=== PATIENT | male | born 1955 | race Two or more races ===

== ENCOUNTER 2020-03-25 18:04 | Emergency (ER) | payer SELFPAY ==
[~2020-03-25] VITALS: Ht 172.7 cm; Wt 79.4 kg
[2020-03-25 18:20] VITALS: BP 125/77
[2020-03-25] MEDS ORDERED: Tetanus/Diptheria/Pertussis IM ONE (18:30)
[2020-03-25] MEDS ORDERED: LORazepam Inj 2mg/ml 1ml IM ONE (18:30)
--- NOTE | 2020-03-25 18:53 | NUR ---
ED Nurse Note: reported to [facility] pt's left elbow is bleeding with discoloration. ERMD assessed pt's arm at the bedside. pt has blood all down his left pant leg and left arm. pt stated that he fell. pt wet, changed him into a gown and gave him warm blankets. cleansed pt's left elbow with normal saline and placed guaze and 4x4. pt appears to be intoxicated, he was found on the side of the road with numerous phone calls in regards to him to 911.
--- NOTE | 2020-03-25 18:54 | Diagnostic Imaging Report ---
EXAM: XR Left Elbow Complete, 3 or More Views CLINICAL HISTORY: PAIN TECHNIQUE: Frontal, lateral and oblique views of the left elbow. COMPARISON: No relevant prior studies available. FINDINGS: Bones/joints: Triceps insertional small enthesophyte. No acute fracture. No dislocation. Soft tissues: Unremarkable. Other findings: Otherwise unremarkable. IMPRESSION: 1. No acute abnormality definitively identified to account for patient presentation. 2. Triceps insertional small enthesophyte. 3. Otherwise unremarkable study.
--- NOTE | 2020-03-25 19:10 | NUR ---
ED Nurse Note: Patient is currently resting no complaints, Aox3 vitals are stable awaiting further medical evaluation and treatment
--- NOTE | 2020-03-25 19:36 | Emergency Room Report ---
History of Present Illness General Chief Complaint: Alcohol Intoxication Source: Patient, EMS Present Illness HPI 64-year-old male presents for evaluation. Brought in by EMS from Street. For EtOH. Multiple bystanders called 911. Sitting on sidewalk. No signs of distress. Patient smiling. Denies pain. No other aggravating relieving factors. Denies any other associated symptoms Allergies: Coded Allergies: No Known Allergies (Unverified , 03/25/20) COVID-19 Screening Contact w/high risk pt: No Experienced COVID-19 symptoms?: No COVID-19 Testing performed [employer]: No Patient History Past Surgical History: none Pertinent Family History: none Social History: Reports: alcohol use; Denies: smoking, drug use Immunizations: UTD Reviewed Nursing Documentation: PMH: Agreed; PSxH: Agreed Review of Systems All Other Systems: negative except mentioned in HPI Physical Exam Vital Signs Date Time Temp Pulse Resp B/P (MAP) Pulse Ox O2 Delivery O2 Flow Rate FiO2 03/25/20 18:01 97.3 100 16 125/77 (93) 99 Room Air Sp02 EP Interpretation: reviewed, normal General Appearance: no apparent distress, alert, GCS 15, non-toxic Head: normocephalic, atraumatic Eyes: bilateral eye normal inspection, bilateral eye PERRL ENT: hearing grossly normal, normal pharynx, no angioedema, normal voice Neck: full range of motion, supple/symm/no masses Respiratory: chest non-tender, lungs clear, normal breath sounds, speaking full sentences Cardiovascular #1: regular rate, rhythm, no edema Cardiovascular #2: 2+ carotid (R), 2+ carotid (L), 2+ radial (R), 2+ radial (L), 2+ dorsalis pedis (R), 2+ dorsalis pedis (L) Gastrointestinal: normal bowel sounds, non tender, soft, non-distended, no guarding, no rebound Rectal: deferred Genitourinary: normal inspection, no CVA tenderness Musculoskeletal: back normal, normal range of motion, gait/station normal, tender - L elbow. abrasion noted. Neurologic: alert, motor strength/tone normal, oriented x3, sensory intact, responsive, speech normal Psychiatric: judgement/insight normal, memory normal, mood/affect normal, no suicidal/homicidal ideation Reflexes: 3+ bicep (R), 3+ bicep (L), 3+ tricep (R), 3+ tricep (L), 3+ knee (R), 3+ knee (L) Lymphatic: no adenopathy Medical Decision Making Homeless Attestation I, The treating physician Dr. Badillo, have assessed and agrees that patient is medically stable for discharge to an outpatient disposition. Diagnostic Impression: Primary Impression: Acute alcoholic intoxication Qualified Codes: F10.929 - Alcohol use, unspecified with intoxication, unspecified Additional Impression: Elbow contusion Qualified Codes: S50.02XA - Contusion of left elbow, initial encounter ER Course Hospital Course 64-year-old male presents to ED status post EtOH intoxication. presenting with L elbow pain Clinical course Patient placed on stretcher. Initial history and physical I ordered x-ray of left elbow. Tetanus given. X-ray shows no acute fracture. Bacitracin and dressing applied. Patient appears somewhat tremulous. Oriented. Vital stable. Likely withdrawing. Given Ativan. Allowed to rest. Observed. Protecting airway. Vital stable. Safe for discharge with close outpatient follow-up. Homeless checklist completed Diagnosis - ETOH intoxication, elbow contusion stable and discharged to home. Followup with PMD. Return to ED if symptoms recur or worsen Other X-Ray Diagnostic Results Other X-Ray Diagnostic Results : X-Ray ordered: L elbow # of Views/Limited Vs Complete: 3 View Indication: Pain EP Interpretation: Yes Interpretation: no dislocation, no soft tissue swelling, no fractures Impression: No acute disease Electronically Signed by: Electronically signed by Corbin Badillo MD Last Vital Signs Date Time Temp Pulse Resp B/P (MAP) Pulse Ox O2 Delivery O2 Flow Rate FiO2 03/25/20 18:43 100 22 125/77 99 03/25/20 18:20 Room Air 03/25/20 18:20 97.3 Status: improved Disposition: OTH-HOMELESS Condition: Stable Scripts Chlordiazepoxide (Chlordiazepoxide HCl) 25 Mg Capsule 25 MG ORAL THREE TIMES A DAY, #15 CAP 0 Refills Prov: Corbin Badillo MD 03/25/20 Referrals: NOT CHOSEN IPA/,REFERRING (PCP) Corbin Badillo MD Mar 25, 2020 19:36
[2020-03-25] MEDS ORDERED: LIBRIUM25 MG ORAL (19:42)
--- NOTE | 2020-03-26 02:06 | NUR ---
patient awake Aox4, gait is steady, laceration to left elbow cleaned and dressing repalced, patient expressed he is able to get a ride home from family or friend
[2020-03-26 02:11] VITALS: BP 142/82
--- NOTE | 2020-03-26 02:11 | NUR ---
ER DISCHARGE NOTE: Patient is cleared to be discharged per ERMD, pt is aox4, on room air, with stable vital signs. pt was given dc and prescription instructions, pt was able to verbalize understanding, pt id band and iv site removed without complications. pt is able to ambulate with steady gait. pt took all belongings.
== END 2020-03-26 02:15 | disposition other institution (70) ==
LOC: EDBD 18:04 → EMR 18:20
DX: F10.129 Alcohol abuse with intoxication, unspecified (principal); S50.02XA Contusion of left elbow, initial encounter; X58.XXXA Exposure to other specified factors, initial encounter; Y93.9 Activity, unspecified; Y92.9 Unspecified place or not applicable; Z59.0 Homelessness
CPT/HCPCS: 90471; 90715; 96372; 99283